=== PATIENT | male | born 1960 | race Caucasian/White ===

== ENCOUNTER → 2024-11-08 09:11 | Outpatient (REF) | payer OTHER, SELFPAY | LOC: RCS 09:11 | PROVIDERS: ATTENDING PHYSICIAN Nurse Practitioner Family | DX: R00.1 Bradycardia, unspecified (principal); I51.7 Cardiomegaly | CPT/HCPCS: 93225; 93226 ==

== ENCOUNTER → 2024-11-15 08:03 | Outpatient (REF) | payer OTHER, SELFPAY | LOC: HWRCS 08:03 | PROVIDERS: ATTENDING PHYSICIAN Nurse Practitioner Family | DX: R00.1 Bradycardia, unspecified (principal); I51.7 Cardiomegaly | CPT/HCPCS: 93306 ==

== ENCOUNTER 2025-05-28 20:42 | Emergency (ER) | payer OTHER, SELFPAY ==
[2025-05-28 20:44] VITALS: BP 129/71
[2025-05-29 01:11] VITALS: BP 120/78
--- NOTE | 2025-05-29 01:22 | ED.MUSCINJ ---
HPI-Injury
General
Chief Complaint: Musculo-Skeletal Complaint
Source: patient
Exam Limitations: none
Time Seen by Provider: 05/29/25 01:08
History of Present Illness-Injury
Initial Injury comments:
64-year-old male presents complaining of right ankle pain. Started today after slipping on the ice. He notes that his ankle potentially dislocated and he pushed it back into place twice. He now notes swelling and increasing pain since then. He
is healthy otherwise. No other complaints
Past History
Past History
ED Past Medical History: None; Negative Asthma, CAD, HTN, Hypercholesterolemia or NIDDM
ED Past Surgical History: Other (hernia repair)
Social History
Tobacco: Non-smoker
Family History
Family History: Negative Early CAD
Phy Exam
Physical Exam
Physical Exam:
General: Well-appearing male no acute distress
HEENT: Normal cephalic atraumatic
Musculoskeletal exam: Right ankle swollen and tender laterally and medially. Subtle lateral deviation of the ankle itself
Vascular: 2+ DP pulse right foot
Neurologic: Good sensation right foot
Injury Course
Orders/Labs/Results
Orders:
Orders
05/28/25 20:46
Ankle, Right 3 view CR [CR Ankle - Right Min 3 Views *] Urgent
Comment:
Reason For Exam: injury
MDM/Problems Addressed
Differential Diagnosis Includes:
Ankle pain after twisting injury. Consider fracture versus dislocation versus both are sprain
I personally visualized the x-rays of the right ankle which demonstrate a bimalleolar ankle fracture
With widening of the medial joint space.
No dislocation on the current x-rays. Will splint and attempt to mold the splint in a fashion it is more favorable. Recommend nonweightbearing and orthopedic follow-up
*Pulse Oximetry
SaO2: 100
Oxygen Mode of Delivery: Room air
Patient hypoxic: no
*Critical Care Note
Total Time (30-74mins, 75-104mins- exclusive of procedures): Not Applicable
ED Attending Note
-
Portions of this chart may have been created with voice recognition software.� Occasional wrong word or��sound alike� substitutions may have occurred due to the inherent limitations of voice recognition software.
Discharge Plan
Departure
Patient Disposition: Home (Routine Discharge)
Date of Disposition: 05/29/25
Time of Disposition: 01:24
Patient with high blood pressure during this ER visit?: No
Discharge Problem:
Bimalleolar ankle fracture
Instructions: How to Use Crutches, Muscle and Bone Pain (DC)
Prescriptions:
No Action
No Current Medications
0
Referrals:
Sai Garcia MD [Family Provider, Family Practice]
Florentin Gentile MD [Active, Orthopedics]
Activity Restrictions/Additional Instructions:
Elevate for swelling. Keep splint on and dry. Do not bear any weight on the right leg. Use crutches for support when ambulating. Follow-up with orthopedics for further evaluation
Interventions
Interventions:
*Neglect/Abuse Screening Last Done: 05/28/25 20:46
[facility] Risk Assessment Tool Last Done: 05/29/25 01:14
*Risk Screen - Suicide (C-SSRS) Last Done: 05/28/25 20:46
Discharge Date and Time
Print Language: [place]
[2025-05-29 01:51] VITALS: BMI 23.7
[2025-05-29] MEDS: PERCOCET 5/325 1 TABLET PO (02:07)
== END 2025-05-29 02:13 | disposition home or self-care (01) ==
LOC: EMR 20:42
PROVIDERS: EMERGENCY PHYSICIAN Emergency Medicine; FAMILY PHYSICIAN Family Medicine
DX: S82.841A Displaced bimalleolar fracture of right lower leg, initial encounter for closed fracture (principal); W00.0XXA Fall on same level due to ice and snow, initial encounter
CPT/HCPCS: 99283; 29515; 73610

== ENCOUNTER → 2025-05-31 13:12 | Outpatient (REF) | payer OTHER, SELFPAY ==
[2025-05-31 14:24] LABS: Hematocrit 39.3 % (39.0-52.0); Hemoglobin 13.4 g/dL (13.0-18.0); Mean Corp Hgb Conc. 34.1 g/dL (33.0-37.0); Mean Corpuscular Volume 90.3 fL (80.0-94.0); Nucleated Red Blood Cells % 0 % (-); Platelet Count 158 10^3/uL (130-400); Red Cell Dist. Width 12.7 % (11.5-14.5)
[2025-05-31 14:49] LABS: Blood Urea Nitrogen 19 mg/dl (9-20); Calcium 9.1 mg/dl (8.4-10.2); Carbon Dioxide 26 mmol/L (22-30); Chloride 102 mmol/L (98-107); Glucose 91 mg/dl (70-99); Potassium 4.0 mmol/L (3.5-5.1); Sodium 135 mmol/L (135-145); eGFR > 60.00
== END ==
LOC: RCS 13:12
PROVIDERS: ATTENDING PHYSICIAN Student in an Organized Health Care Education/Training Program; FAMILY PHYSICIAN Family Medicine
DX: Z01.818 Encounter for other preprocedural examination (principal)
CPT/HCPCS: 36415; 80048; 85025; 93005

== ENCOUNTER 2025-06-03 05:44 | Day surgery (SDC) | payer OTHER, SELFPAY ==
[2025-06-03] VITALS (13 sets, daily range): BP systolic 81–106; BP diastolic 46–69; BMI 23.7
[2025-06-03] MEDS: CELEBREX 200 MG PO (06:23)
[2025-06-03] MEDS: TYLENOL 1000 MG PO (06:23)
[2025-06-03] MEDS: NORMOSOL-R/PLASMALYTE-A 1000 IV (06:24)
--- NOTE | 2025-06-04 08:47 | OR.RPT ---
Operative Report
Operative Report
Operative Report
Patient Name: Armen Manzo

Date of Surgery: 06/03/2025
Surgeon: Doug Beal DPM
Foot Orthopedist: Doug Rodgers DPM
Pre-operative diagnosis:
Displaced right bimalleolar ankle fracture with syndesmotic instability
Post-operative diagnosis:
Same as preoperative
Procedure:
Open reduction and internal fixation of right bimalleolar ankle fracture (CPT 68817)
Open reduction and internal fixation of right distal tibiofibular syndesmosis (CPT 59365)
Anesthesia:
General anesthesia with regional block
Hemostasis:
Right thigh tourniquet inflated to 300mmHg for the entirety of the procedure
Estimated blood loss:
Minimal
Specimens:
None
Implants:
Genaro 1/3 tubular plate with combination of locking and non-locking screws
Two 4.0 mm Genaro cannulated screws (medial malleolus)
One Arthrex TightRope syndesmotic fixation device
Complications:
None
Indications for Procedure:
The patient is a 64 year old male who sustained a displaced right bimalleolar ankle fracture following a slip and fall. Imaging demonstrated displacement of both the medial and lateral malleoli with comminution of the distal fibula as well as
associated syndesmotic instability. Given the degree of displacement, instability, and the risk of malunion and post-traumatic ankle arthritis with nonoperative treatment, surgical intervention was recommended. The risks, benefits, and alternatives
were discussed in detail with the patient, including infection, nonunion, malunion, hardware failure, stiffness, and need for further surgery. Informed consent was obtained.
Description of Procedure:
The patient was brought to the operating room and placed supine on the operating table. After induction of general anesthesia, a well-padded right thigh tourniquet was applied. The right lower extremity was then prepped and draped in the usual
sterile fashion. A formal surgical time-out was performed confirming the correct patient, procedure, and operative site. The extremity was exsanguinated and the tourniquet inflated.
Attention was first directed to the lateral ankle. A longitudinal incision was made over the distal fibula. Blunt dissection was carried down through the subcutaneous tissues with care taken to protect the superficial peroneal nerve and all other
neurovascular structures. The distal fibular fracture was identified and noted to be comminuted. Due to the comminution a bridge plating technique was selected to restore fibular length, alignment, and rotation. Using a combination of reduction
clamps, the fibular fracture was distracted and reduced into anatomic alignment. K-wires were used to temporarily fixated the fracture fragments.
A Genaro 1/3 tubular plate was contoured and applied to the lateral aspect of the fibula. Fixation was achieved using a combination of locking and non-locking screws placed proximally and distally, providing stable fixation while maintaining
fracture biology. Intraoperative fluoroscopy confirmed appropriate orthodoxy of fibular length, alignment, and satisfactory hardware positioning.
Attention was then turned to the medial malleolus. A curvilinear incision was made over the medial ankle, and careful blunt dissection was carried down to the fracture site with protection of the saphenous vein and nerve. The fracture site was
cleared of hematoma and interposed tissue and anatomically reduced. Fixation was achieved using two 4.0 mm Genaro cannulated screws placed perpendicular to the fracture line. Fluoroscopy confirmed anatomic reduction and stable fixation.
A stress examination of the ankle mortise under fluoroscopy demonstrated persistent distal tibiofibular syndesmotic instability. The syndesmosis was anatomically reduced under fluoroscopic guidance and stabilized using one Arthrex TightRope device
placed through the fibular plate into the distal tibia. Final fluoroscopic images confirmed orthodoxy of the ankle mortise, appropriate syndesmotic alignment, and stable fixation of the bimalleolar fracture.
The surgical sites were copiously irrigated with sterile saline. The tourniquet was deflated and meticulous hemostasis achieved. The wounds were closed in a layered fashion with 2-0 vicryl for deep tissues, 3-0 vicryl for subcutaneous tissues, and
3-0 prolene was used for skin closure, followed by sterile dressings. The patient was placed into a well-padded posterior splint with the ankle held in neutral position.
The patient tolerated the procedure well and was transferred to the post-anesthesia care unit in stable condition with intact neurovascular status to the right lower extremity.
Postoperative Plan:
Strict non-weightbearing to the right lower extremity
Posterior splint with elevation and icing
Pain control per protocol
DVT prophylaxis as indicated
Follow-up in 10�14 days for wound check and repeat radiographs
Transition to cast or walking boot based on clinical and radiographic healing
== END 2025-06-03 12:31 | disposition home or self-care (01) ==
LOC: SDS 05:44
PROVIDERS: ATTENDING PHYSICIAN Student in an Organized Health Care Education/Training Program
DX: S82.841A Displaced bimalleolar fracture of right lower leg, initial encounter for closed fracture (principal); W01.0XXA Fall on same level from slipping, tripping and stumbling without subsequent striking against object, initial encounter
CPT/HCPCS: 27814; 27829; 73610; 76000; C1713